=== PATIENT | female | born 2000 | race Caucasian/White ===

== ENCOUNTER 2024-10-16 13:19 | Outpatient (CLI) | payer OTHER, SELFPAY ==
[2024-10-16 23:14] LABS: Chlamydia DNA Amplified* NOT DETECTED (No Detected); GC DNA Amplified* NOT DETECTED (No Detected)
== END 2024-10-16 13:20 | disposition home or self-care (01) ==
PROVIDERS: PCP Physician Assistant Medical; Visit Provider Physician Assistant Medical
DX: Z11.3 Encounter for screening for infections with a predominantly sexual mode of transmission (principal); Z12.4 Encounter for screening for malignant neoplasm of cervix; Z11.51 Encounter for screening for human papillomavirus (HPV)
CPT/HCPCS: 87491; 87591; 87624; 87625; 88141; 88142

== ENCOUNTER 2025-07-03 10:54 | Outpatient (CLI) | payer OTHER, SELFPAY ==
--- NOTE | 2025-07-03 11:00 | CRLHL7_ITS ---
For Patients: As a result of the Century Cures Act, medical imaging exams and procedure reports are released immediately into your electronic medical record. You may view this report before your referring provider. If you have questions, please contact your health care provider. Indication: Unable TO EXTEND ARM Technique: Noncontrast CT left elbow Please note that all CT scans at this facility use dose modulation, iterative reconstruction, and/or weight-based dosing when appropriate to reduce radiation dose to as low as reasonably achievable. Comparison: X-rays 06/12/2025 Findings: Postop changes open reduction internal fixation of radial neck fixation. Alignment near anatomic. No acute fracture. Mild elbow plate and screw fixation hardware appears intact. Multiple tiny densities are present within the adjacent soft tissues about the proximal radial/ulnar region. No joint effusion or synovitis. Chronic densities are present adjacent to the medial and lateral humeral epicondyles. No intrinsic osseous lesion. No fluid collection or mass. Impression: Postop changes to the proximal radius with intact hardware. No acute fracture. Multiple adjacent densities in the soft tissues. Please note that all CT scans at this facility use dose modulation, iterative reconstruction, and/or weight-based dosing when appropriate to reduce radiation dose to as low as reasonably achievable. Dictated by Armond Yee MD @ 07/03/2025 1:03:11 PM (Electronically Signed)
== END 2025-07-03 10:55 | disposition home or self-care (01) ==
LOC: CT 10:55
PROVIDERS: PCP Physician Assistant Medical; Visit Provider Orthopaedic Surgery Hand Surgery
DX: S52.123A Displaced fracture of head of unspecified radius, initial encounter for closed fracture (principal)
CPT/HCPCS: 73200